=== PATIENT | male | born 1965 | race Caucasian/White ===

== ENCOUNTER → 2016-04-30 | Day surgery (SDC) | payer BC ==
[2016-04-28 11:25] VITALS: Ht 177.8 cm; Wt 65.0 kg
--- NOTE | 2016-04-29 08:39 | History and Physical: Surg Cnt ---
History & Physical Date Apr 29, 2016. Chief Complaint hoarseness History of Present Illness The patient is a 50 year old male with complaints of left vocal cord nodule Additional History Hepatic Disease: No Endocrine Disorder: No Kidney Disease: No Hypertension: No Heart Disease: No Bleeding Tendencies: No Infectious Diseases: No Allergies Coded Allergies: No Known Allergies (Unverified , 04/28/16) Home Medications Scheduled PRN Ibuprofen (Advil), 400-600 MG PO Q6H PRN for Pain Physical Examination Skin: warm/dry, no rash Eyes: normal inspection, EOMI, sclerae normal ENT: normal ENT inspection, pharynx normal Head: normocephalic, atraumatic Neck: supple, no adenopathy, trachea midline Respiratory/Chest: lungs clear, normal breath sounds, no respiratory distress Cardiovascular: regular rate, rhythm, no edema, no murmur Abdomen / GI: normal bowel sounds, non tender Back: normal inspection Extremities: normal inspection, normal range of motion Neurologic/Psych: no motor/sensory deficits, alert, normal reflexes, oriented x 3 Diagnosis left vocal cord nodule Plan of Treatment direct laryngoscopy/micro excision
[~2016-04-30] VITALS: Ht 177.8 cm; Wt 65.0 kg
[~2016-04-30] MED LIST: ATROPINE SULFATE 0.1 MG/ML 5ML SYR IV PRN; BENZOCAIN/TETRACA/BUTAM SPRAY 200 APPLN/20 GM SPRY ONE; DEXAMETHASONE SOD INJ 4 MG/ML VIAL ONE; EpHEDrine SULFATE INJ 50 MG/ML AMP IV PRN; FENTANYL CITRATE INJ 50 MCG/1 ML 2 ML VIAL IV PRN; FENTANYL CITRATE INJ 50 MCG/1 ML 2 ML VIAL ONE; FLUMAZENIL 0.1 MG/1 ML 10 ML VIAL IV ONE; IBUP-1050 PO; LACTATED RINGER'S 1000ML 1,000 ML IV SCH; LIDOCAINE HCL 2% 2 ML VIAL (20MG/ML) ONE; MIDAZOLAM HCL 1 MG/ML 2ML VIAL ONE; ONDANSETRON INJ 2 MG/ML 2 ML VIAL IV PRN; ONDANSETRON INJ 2 MG/ML 2 ML VIAL ONE; OXYCODONE/ACETAMINOPHEN 5-325 TAB PO PRN; PROPOFOL IV EMULSION 10 MG/ML 20 ML VIAL IV ONE; SODIUM CHLORIDE 0.9% 1000ML 1,000 ML IV SCH; SUCCINYLCHOLINE CHLORIDE 20 MG/ML 10 ML VIAL IV ONE
--- NOTE | 2016-04-30 07:01 | History & Physical Bridge Note ---
H&P Re-Evaluation Bridge Note: I have examined the patient, reviewed the History & Physical and in the interval since the performance of the History & Physical I have noted the following changes of clinical significance: No changes noted
--- NOTE | 2016-04-30 09:18 | Discharge Instructions-SurgCtr ---
Discharge Instructions Visit Reason for Visit: Left Vocal Cord Nodule Discharge Discharge Diagnosis / Problem: same Discharge Goals Goal(s): Improve function Activity Recommendations Activity Limitations: resume your previous activity rest voice for 1 week Anesthesia . Post Anesthesia Instructions: If you have had General Anesthesia or IV Sedation: * Do not drive today. * Resume driving when surgeon permits. * Do not make important decisions or sign legal documents today. * Call surgeon for: 1. Temperature elevations greater than 101 degrees F. 2. Uncontrollable pain. 3. Excessive bleeding. 4. Persistent nausea and vomiting. 5. Medication intolerance (nausea, vomiting or rash). * For nausea and vomiting use only clear liquids such as: tea, soda, bouillon until nausea subsides, then gradually increase diet as tolerated. * If you have any concerns or questions, call your surgeon's office. If physician is unavailable and it is an emergency, call 911 or go to the nearest emergency room. . Diet Recommendations Home Diet: no limitations Pending Studies Studies pending at discharge: no Medical Emergencies . Who to Call and When: Medical Emergencies: If at any time you feel your situation is an emergency, please call 911 immediately. . Non-Emergent Contact Non-Emergency issues call your: Primary Care Provider . . "Provider Documentation" section prepared by Jes Gibbons.
--- NOTE | 2016-04-30 10:35 | OPERATIVE REPORT ---
DATE OF OPERATION: 04/30/2016 PREOPERATIVE DIAGNOSIS: Left vocal cord nodule. POSTOPERATIVE DIAGNOSIS: Same. PROCEDURE: Direct laryngoscopy with micro excision of left vocal cord nodule. SURGEON: Dr. Gibbons. ANESTHESIA: General endotracheal. COMPLICATIONS: None. BLOOD LOSS: 2 mL. HISTORY OF PRESENT ILLNESS: A 50-year-old gentleman with hoarseness, found to have a nodule of the left true vocal cord at the anterior one-third. PROCEDURE: The patient was brought to the operating room and placed in supine position. General endotracheal anesthesia was induced. Dedo laryngoscope was used. Vallecula, piriform sinus area, epiglottis and postcricoid area were normal. Suspension and microlaryngoscopy was performed. There was a sessile nodule at the anterior one-third of the left true vocal cord. This was exposed with the Dedo laryngoscope and with slight cricoid pressure and the nodule was excised using upbiting cup forceps and upbiting scissors, preserving mucosa at the bleeding edge of the vocal cord, but excising the nodule. Hemostasis was noted to be good. The laryngoscope was withdrawn. The patient was taken to recovery area in satisfactory condition. I attest to the content of the Intraoperative Record and any orders documented therein. Any exceptio ns are noted below.
[2016-04-30 10:55] VITALS: TEMP 36.8
--- NOTE | 2016-04-30 11:06 | Anesthesia Progress Nt - [facility] ---
Anesthesia Post Op Note Date & Time Apr 30, 2016 at 11:05 Vital Signs Pain Intensity: 0 Vital Signs Past 12 Hours Date Time Temp Pulse Resp B/P Pulse Ox O2 Delivery O2 Flow Rate FiO2 04/30/16 10:55 36.8 44 16 122/75 95 Room Air 04/30/16 10:45 36.6 46 16 114/71 94 Room Air 04/30/16 10:44 46 17 94 04/30/16 10:44 46 17 04/30/16 10:43 114/71 04/30/16 10:38 104/69 04/30/16 10:34 49 10 98 04/30/16 10:34 50 13 98 04/30/16 10:33 109/70 04/30/16 10:29 49 17 99 04/30/16 10:29 51 17 04/30/16 10:28 114/75 04/30/16 10:28 114/75 04/30/16 10:27 48 11 98 04/30/16 10:27 48 11 04/30/16 10:27 48 11 98 04/30/16 10:27 48 11 04/30/16 10:23 110/73 04/30/16 10:23 110/73 04/30/16 10:18 106/66 04/30/16 10:18 106/66 04/30/16 10:17 50 12 98 04/30/16 10:17 50 12 98 04/30/16 10:17 46 17 98 04/30/16 10:17 46 17 98 04/30/16 10:14 36.6 52 12 106/75 99 Humidified Oxygen 8 Mask 04/30/16 10:13 111/65 04/30/16 10:13 111/65 04/30/16 10:12 45 10 98 04/30/16 10:12 46 10 04/30/16 10:12 45 10 98 04/30/16 10:12 46 10 04/30/16 08:10 36.5 54 20 116/76 98 Room Air Notes Mental Status: alert / awake / arousable, participated in evaluation Pt Amnestic to Procedure: Yes Nausea / Vomiting: adequately controlled Pain: adequately controlled Airway Patency, RR, SpO2: stable & adequate BP & HR: stable & adequate Hydration State: stable & adequate Anesthetic Complications: no major complications apparent
[2016-04-30 11:10] VITALS: BP 114/72; PULSE 44; O2SAT 96
== END | disposition home or self-care (01) ==
LOC: X.SURG 07:51
PROVIDERS: ATTEND Otolaryngology
DX: J38.3 Other diseases of vocal cords (principal)

== ENCOUNTER → 2017-11-12 | Outpatient (CLI) | payer BC, OTHER ==
[~2017-11-12] MED LIST changes: -ATROPINE SULFATE 0.1 MG/ML 5ML SYR IV PRN; -BENZOCAIN/TETRACA/BUTAM SPRAY 200 APPLN/20 GM SPRY ONE; -DEXAMETHASONE SOD INJ 4 MG/ML VIAL ONE; -EpHEDrine SULFATE INJ 50 MG/ML AMP IV PRN; -FENTANYL CITRATE INJ 50 MCG/1 ML 2 ML VIAL IV PRN; -FENTANYL CITRATE INJ 50 MCG/1 ML 2 ML VIAL ONE; -FLUMAZENIL 0.1 MG/1 ML 10 ML VIAL IV ONE; -LACTATED RINGER'S 1000ML 1,000 ML IV SCH; -LIDOCAINE HCL 2% 2 ML VIAL (20MG/ML) ONE; -MIDAZOLAM HCL 1 MG/ML 2ML VIAL ONE; -ONDANSETRON INJ 2 MG/ML 2 ML VIAL IV PRN; -ONDANSETRON INJ 2 MG/ML 2 ML VIAL ONE; -OXYCODONE/ACETAMINOPHEN 5-325 TAB PO PRN; -PROPOFOL IV EMULSION 10 MG/ML 20 ML VIAL IV ONE; -SODIUM CHLORIDE 0.9% 1000ML 1,000 ML IV SCH; -SUCCINYLCHOLINE CHLORIDE 20 MG/ML 10 ML VIAL IV ONE
== END | disposition home or self-care (01) ==
LOC: C.RDSM 13:01
PROVIDERS: ATTEND Orthopaedic Surgery
DX: M25.562 Pain in left knee (principal)